=== PATIENT | male | born 1935 | race Caucasian/White ===

== ENCOUNTER 2023-01-22 18:35 | Emergency (ER) | payer OTHER ==
[2023-01-22] MEDS ORDERED: ELIQUIS5 M1 PO (19:01)
[2023-01-22 19:02] LABS: HEMATOCRIT 45.7 % (42.0-52.0); MEAN CELL VOLUME 94.2 fl (80.0-94.0); MEAN CORPUSCULAR HGB 32.8 pg (27.0-31.0); MEAN CORPUSCULAR HGB CONC 34.8 g/dl (33.0-37.0); MEAN PLATELET VOLUME 9.9 fl (9.6-12.3); PLATELET COUNT AUTOMATED 160 10*3/uL (130-400); RED BLOOD COUNT 4.85 10*6/uL (4.50-5.90); RED CELL DISTRI WIDTH 12.2 % (0-14.5); WHITE BLOOD COUNT 16.8 10*3/uL (4.8-10.8)
[2023-01-22] MEDS ORDERED: CARTIA XT120 MG PO (19:02)
[2023-01-22] MEDS ORDERED: LACTULOSE10 GM/153 PO (19:03)
[2023-01-22] MEDS ORDERED: LEVOTHYROXINE50 MCG PO (19:03)
[2023-01-22] MEDS ORDERED: ESCITALOPRAM OX10 MG PO (19:04)
[2023-01-22] MEDS ORDERED: CENTRUM SILVER1 EACH PO (19:05)
[2023-01-22 19:16] LABS: MANUAL DIFF REFLEX YES
[2023-01-22 19:19] LABS: ALKALINE PHOSPHATASE 107 U/L (46-116); BUN 19 mg/dl (9-23); CHLORIDE 100 mmol/L (98-107); POTASSIUM 3.7 mmol/L (3.4-5.1); SGPT/ALT 83 U/L (10-49); TOTAL PROTEIN 6.5 gm/dL (6.0-8.0)
[2023-01-22 19:27] LABS: INTERNATIONAL NORM RATIO 1.4 (2.0-3.5)
[2023-01-22 19:55] LABS: PLATELET SUFFICIENCY NORMAL (NORMAL); TOTAL CELLS COUNTED 100 #CELLS
== END 2023-01-22 21:54 | disposition short-term general hospital (02) ==
LOC: ED 18:35
PROVIDERS: Emergency Medicine
DX: A41.9 Sepsis, unspecified organism (principal); K80.20 Calculus of gallbladder without cholecystitis without obstruction; R79.82 Elevated C-reactive protein (CRP); R79.89 Other specified abnormal findings of blood chemistry; R77.8 Other specified abnormalities of plasma proteins; E44.1 Mild protein-calorie malnutrition; Z68.1 Body mass index [BMI] 19.9 or less, adult; N18.31 Chronic kidney disease, stage 3a; I25.10 Atherosclerotic heart disease of native coronary artery without angina pectoris

== ENCOUNTER 2023-07-13 20:02 | Emergency (ER) | payer OTHER ==
[~2023-07-13] VITALS: Ht 185.4 cm
[~2023-07-13 20:02] MED LIST: CARTIA XT120 MG PO; CENTRUM SILVER1 EACH PO; ELIQUIS5 M1 PO; ESCITALOPRAM OX10 MG PO; LACTULOSE10 GM/153 PO; LEVOTHYROXINE50 MCG PO
[2023-07-13 20:40] LABS: BASO # 0.1 10*3/uL (0.0-0.1); BASO % 0.9 % (0.0-1.0); EOS # 0.2 10*3/uL (0.0-0.4); EOS % 2.6 % (1.0-4.0); HEMATOCRIT 44.1 % (42.0-52.0); LYMPH # 1.9 10*3/uL (1.3-4.4); LYMPH % 28.9 % (27.0-41.0); MEAN CELL VOLUME 89.3 fl (80.0-94.0); MEAN CORPUSCULAR HGB 29.4 pg (27.0-31.0); MEAN CORPUSCULAR HGB CONC 32.9 g/dl (33.0-37.0); MEAN PLATELET VOLUME 10.7 fl (9.6-12.3); MONO # 0.7 10*3/uL (0.1-1.0); MONO % 10.2 % (3.0-9.0); NEUT # 3.7 10*3/uL (2.3-7.9); NEUT % 56.8 % (47.0-73.0); PLATELET COUNT AUTOMATED 122 10*3/uL (130-400); RED BLOOD COUNT 4.94 10*6/uL (4.50-5.90); RED CELL DISTRI WIDTH 14.9 % (0-14.5); WHITE BLOOD COUNT 6.5 10*3/uL (4.8-10.8)
[2023-07-13 20:51] LABS: ACT PARTIAL THROMBO TIME 27.1 SECONDS (20.0-32.1); INTERNATIONAL NORM RATIO 1.2 (2.0-3.5)
[2023-07-13 20:56] LABS: ALKALINE PHOSPHATASE 98 U/L (46-116); BUN 18 mg/dl (9-23); CHLORIDE 108 mmol/L (98-107); LIPASE 44 U/L (12-53); POTASSIUM 5.2 mmol/L (3.4-5.1); SGPT/ALT 15 U/L (5-49); TOTAL PROTEIN 6.6 gm/dL (6.0-8.0)
== END 2023-07-13 23:23 ==
LOC: ED 20:02
PROVIDERS: Internal Medicine
DX: I45.9 Conduction disorder, unspecified (principal); F03.90 Unspecified dementia, unspecified severity, without behavioral disturbance, psychotic disturbance, mood disturbance, and anxiety; I25.10 Atherosclerotic heart disease of native coronary artery without angina pectoris